=== PATIENT | female | born 1975 | race Hispanic/Latino ===

== ENCOUNTER → 2019-04-25 | Outpatient (CLI) | payer OTHER | END | disposition home or self-care (01) | LOC: RAH 14:28 | PROVIDERS: ATTEND Family Medicine | DX: Z12.31 Encounter for screening mammogram for malignant neoplasm of breast (principal) | CPT/HCPCS: 77067 ==

== ENCOUNTER → 2020-05-11 | Outpatient (CLI) | payer OTHER | END | disposition home or self-care (01) | LOC: RAH 13:13 | PROVIDERS: ATTEND Urology | DX: N20.0 Calculus of kidney (principal); N32.89 Other specified disorders of bladder | CPT/HCPCS: 76770 ==

== ENCOUNTER 2020-05-31 20:52 | Observation (INO) | payer OTHER ==
[~2020-05-31] VITALS: Ht 152.4 cm; Wt 88.9 kg
[2020-05-31 21:14] LABS: APPEARANCE,URINE Turbid (CLEAR); BILIRUBIN,URINE Negative (NEGATIVE); COLOR,URINE Yellow (YELLOW); GLUCOSE, URINE (UA) Negative (NEGATIVE); KETONES,URINE Trace mg/dL (NEGATIVE); LEUKOCYTE ESTERASE ,URINE Negative (NEGATIVE); NITRATE,URINE Negative (NEGATIVE); OCCULT BLOOD,URINE Negative (NEGATIVE); PH,URINE 5.5 (5.0-8.0); PROTEIN,URINE Negative (NEGATIVE)
[2020-05-31 21:16] LABS: HCG,QUAL RESULT NEGATIVE (NEGATIVE)
[2020-05-31 21:27] LABS: BASOPHILS % (AUTO) 0.6 % (0.0-5.0); EOSINOPHILS % (AUTO) 2.6 % (0.0-8.0); HEMATOCRIT 36.5 % (36-48); LYMPHOCYTES % (AUTO) 26.4 % (21.0-51.0); MEAN CORPUSCULAR HEMOGLOBIN 27.8 pg (27.0-33.0); MEAN CORPUSCULAR HGB CONC 32.6 g/dL (32.0-36.0); MEAN CORPUSCULAR VOLUME 85.3 fL (79-99); MONOCYTES % (AUTO) 6.3 % (3.0-13.0); NEUTROPHILS % (AUTO) 63.5 % (40.0-77.0); PLATELET COUNT (AUTO) 274 K/uL (130-400); RED BLOOD CELL COUNT(AUTO) 4.28 MIL/uL (4.00-5.50); RED CELL DISTRIBUTION WIDTH 14.3 % (11.0-15.5)
[2020-05-31] MEDS ORDERED: ONDANSETRON HCL 4 MG/2 ML VIAL ONE (21:36)
[2020-05-31] MEDS ORDERED: KETOROLAC TROMETHAMINE 30MG/ML ONE (21:36)
[2020-05-31 21:38] LABS: CREATININE 1.2 mg/dL (0.5-1.5); POTASSIUM 3.6 mmol/L (3.5-5.1)
[2020-05-31 21:40] LABS: BACTERIA,URINE Moderate /HPF (None Seen); MUCUS,URINE Few LPF (None Seen); SQUAMOUS EPITHELIAL CELL,UR Few /HPF (0-2); URIC ACID CRYSTALS,URINE Many /LPF (None Seen)
[2020-05-31 21:42] LABS: ALBUMIN 3.1 g/dL (3.5-5.0); BILIRUBIN,TOTAL 0.1 mg/dL (0.2-1.0); TOTAL PROTEIN, SERUM 6.9 g/dL (6.0-8.3)
[2020-06-01] VITALS (24 sets, daily range): BP systolic 119–163; BP diastolic 76–96
[2020-06-01] MEDS ORDERED: CEFTRIAXONE SODIUM 1 GM ONE ×2 (01:46→17:07)
[2020-06-01] MEDS: DEXTROSE 5 %-0.45 % NACL 1,000 ML IV SCH ×2 (02:45→21:26)
[2020-06-01] MEDS ORDERED: MORPHINE SULFATE 2 MG/ML 1ML SYG IVP PRN (02:45)
[2020-06-01] MEDS ORDERED: MORPHINE SULFATE 4 MG/1ML SYG ONE ×3 (04:23→13:16)
[2020-06-01] MEDS ORDERED: DEXTROSE 5 %-0.45 % NACL 1,000 ML IV ONE (04:23)
[2020-06-01 05:05] LABS: BASOPHILS % (AUTO) 0.5 % (0.0-5.0); EOSINOPHILS % (AUTO) 3.2 % (0.0-8.0); HEMATOCRIT 35.3 % (36-48); LYMPHOCYTES % (AUTO) 29.7 % (21.0-51.0); MEAN CORPUSCULAR HEMOGLOBIN 26.9 pg (27.0-33.0); MEAN CORPUSCULAR HGB CONC 31.7 g/dL (32.0-36.0); MEAN CORPUSCULAR VOLUME 84.7 fL (79-99); MONOCYTES % (AUTO) 6.5 % (3.0-13.0); NEUTROPHILS % (AUTO) 59.6 % (40.0-77.0); PLATELET COUNT (AUTO) 266 K/uL (130-400); RED BLOOD CELL COUNT(AUTO) 4.17 MIL/uL (4.00-5.50); WHITE BLOOD COUNT (AUTO) 12.3 K/uL (4.8-10.8)
[2020-06-01 05:19] LABS: CREATININE 1.2 mg/dL (0.5-1.5); POTASSIUM 3.7 mmol/L (3.5-5.1)
[2020-06-01 05:24] LABS: ALBUMIN 2.9 g/dL (3.5-5.0); BILIRUBIN,TOTAL 0.1 mg/dL (0.2-1.0); TOTAL PROTEIN, SERUM 6.6 g/dL (6.0-8.3)
[2020-06-01] MEDS ORDERED: ONDANSETRON HCL 4 MG/2 ML VIAL ONE (13:15)
[2020-06-01] MEDS ORDERED: IOHEXOL-350 50ML VIAL IV ONE (16:56)
[2020-06-01] MEDS ORDERED: PROPOFOL 10 MG/ML 20ML VIAL IV ONE (17:12)
[2020-06-01] MEDS ORDERED: SUCCINYLCHOLINE 200MG/10ML SYR ONE (17:12)
[2020-06-01] MEDS ORDERED: ROCURONIUM 10MG/1ML SYR 10 MG/ML ML ONE (17:12)
[2020-06-01] MEDS ORDERED: LIDOCAINE PF 2% 5ML ABBOJECT ONE (17:12)
[2020-06-01] MEDS ORDERED: FENTANYL CITRATE PF 50 MCG/1 ML 2ML VIAL ONE (17:13)
[2020-06-01] MEDS ORDERED: ALBUTEROL INHALER 90MCG/INH IH ONE (17:43)
[2020-06-01] MEDS ORDERED: NEOSTIGMINE 5MG/5ML SYR IV ONE (17:44)
[2020-06-01] MEDS ORDERED: GLYCOPYRROLATE 1 MG/5 ML SYRINGE ONE (17:44)
[2020-06-02 00:03] VITALS: BP 142/85
[2020-06-02 00:51] VITALS: BP 119/82
[2020-06-02] MEDS ORDERED: CEFTRIAXONE SODIUM 1 GM IVP SCH (01:00)
[2020-06-02 01:03] VITALS: BP 142/80
[2020-06-02] MEDS ORDERED: TRAZ-253 PO (03:00)
[2020-06-02] MEDS ORDERED: SOLI5TAB6 PO (03:00)
[2020-06-02] MEDS ORDERED: CETI1TAB PO (03:00)
[2020-06-02] MEDS ORDERED: DILT30TA3 PO (03:00)
[2020-06-02] MEDS ORDERED: CITA-106 PO (03:00)
[2020-06-02] MEDS ORDERED: ESTR0.5T PO (03:00)
[2020-06-02] MEDS ORDERED: MONT10TA26 PO (03:00)
[2020-06-02] MEDS ORDERED: TAMSULOSIN PO (03:00)
[2020-06-02 04:34] VITALS: BP 142/83
[2020-06-02 08:00] VITALS: BP 143/75
--- NOTE | 2020-06-02 08:00 | NUR ---
ASSESSMENT PT IS AAOX3 DENIES CP DENIES SOB DENIES NV NO COMPLAINTS RESTING IN BED. STATES SHE DENIES ALL PAIN WHATSOEVER TO SUPRAPUBIC AREA, AREA IS SOFT AND NON TENDER. STATES SHE IS ABLE TO URINATE WITHOUT HESITANCY AND STATES THAT SHE EMPTIES HER BLADDER ADEQUATELY. CALL LIGHT WITHIN REACH. PLAN FOR DC HOME TODAY.
--- NOTE | 2020-06-02 09:27 | NUR ---
DISCHARGE PT VERBALIZES DC INSTRUCTIONS UNDERSTANDING AGREES TO TAKE MEDS ORDERED AGREES TO FOLLOW UP WITH DR BACON AND DR PACHECO. ALL QUESTIONS ANSWERED, PIV REMOVED CATH TIP INTACT. AWAITING RIDE.
[2020-06-21] MEDS ORDERED: CITA10TA7 PO (11:29)
[2020-06-21] MEDS ORDERED: GAMMAGARD SQ (11:32)
[2020-06-21] MEDS ORDERED: RIZA10TA41 PO (11:32)
[2020-06-21] MEDS ORDERED: DIPH50 PO (11:32)
[2020-06-21] MEDS ORDERED: EREN70AU2 SQ (11:35)
[2020-06-21] MEDS ORDERED: ALBU18HF7 IH (11:35)
[2020-06-21] MEDS ORDERED: PROM25TA7 PO (11:38)
[2020-06-21] MEDS ORDERED: HYDR-4064 PO (11:38)
[2020-06-21] MEDS ORDERED: BUDE8.43 NS (11:38)
[2020-06-21] MEDS ORDERED: folic acid PO (11:40)
[2020-06-21] MEDS ORDERED: FERR-82 PO (11:40)
[2020-06-21] MEDS ORDERED: CYAN500T63 PO (11:40)
[2020-06-21] MEDS ORDERED: ALBU0.63 IH (11:41)
[2020-07-13] MEDS ORDERED: OMEP40CA13 PO (12:39)
[2020-07-13] MEDS ORDERED: DILT30TA3 PO (12:39)
[2020-07-13] MEDS ORDERED: SOLI5 PO (12:39)
[2020-07-13] MEDS ORDERED: FLUT1AER IH (12:39)
== END 2020-06-02 11:00 | disposition home or self-care (01) ==
LOC: EDH 20:52 → EDHIP 06-01 00:39 → 4CH 06-01 19:42
PROVIDERS: ADMIT Internal Medicine; ATTEND Internal Medicine
DX: N13.2 Hydronephrosis with renal and ureteral calculous obstruction (principal); Z20.828 Contact with and (suspected) exposure to other viral communicable diseases; N32.81 Overactive bladder; I10 Essential (primary) hypertension; G43.909 Migraine, unspecified, not intractable, without status migrainosus; E66.9 Obesity, unspecified; F32.9 Major depressive disorder, single episode, unspecified; Z87.442 Personal history of urinary calculi; Z90.710 Acquired absence of both cervix and uterus; Z88.2 Allergy status to sulfonamides; Z88.8 Allergy status to other drugs, medicaments and biological substances; Z79.899 Other long term (current) drug therapy
CPT/HCPCS: 36415 ×2; 52005; 74176; 74420; 76770; 80053 ×2; 81001; 81025; 85025 ×2; 87088; 87426; 96374; 99285; A4358; A4930; C1758; C1769; C2617; G0378 ×25; J0330; J0696 ×2; J1885; J2001; J2270 ×3; J2405 ×2; J2704; J2710; J3010; J3490; J7030; J7042; J7120; Q9967

== ENCOUNTER 2020-06-22 07:32 | Day surgery (SDC) | payer OTHER ==
[2020-06-20 19:01] LABS: BASOPHILS % (AUTO) 0.5 % (0.0-5.0); EOSINOPHILS % (AUTO) 1.7 % (0.0-8.0); HEMATOCRIT 36.7 % (36-48); LYMPHOCYTES % (AUTO) 27.7 % (21.0-51.0); MEAN CORPUSCULAR HEMOGLOBIN 27.5 pg (27.0-33.0); MEAN CORPUSCULAR HGB CONC 31.6 g/dL (32.0-36.0); MONOCYTES % (AUTO) 5.9 % (3.0-13.0); NEUTROPHILS % (AUTO) 63.6 % (40.0-77.0); PLATELET COUNT (AUTO) 373 K/uL (130-400); RED BLOOD CELL COUNT(AUTO) 4.22 MIL/uL (4.00-5.50); RED CELL DISTRIBUTION WIDTH 14.3 % (11.0-15.5)
[2020-06-21] MEDS: CEFTRIAXONE SODIUM 1 GM IVP SCH (07:30)
--- NOTE | 2020-06-21 09:57 | NUR ---
WBC FAXED AND REPORTED ABNORMAL WBC TO DR. ERIN SMALLWOOD ASST. SHE WILL INFORM DR. PACHECO.
--- NOTE | 2020-06-21 14:00 | NUR ---
PER SELIN LONGORIA NURSE--MD AWARE OF WBC 15. NO NEW ORDERS. WILL PROCEED
[~2020-06-22] VITALS: Ht 153.7 cm; Wt 91.3 kg
[2020-06-22] VITALS (17 sets, daily range): BP systolic 115–131; BP diastolic 64–78
[~2020-06-22 07:32] MED LIST: ALBU0.63 IH; ALBU18HF7 IH; BUDE8.43 NS; CETI1TAB PO; CITA10TA7 PO; CYAN500T63 PO; DILT30TA3 PO; DIPH50 PO; EREN70AU2 SQ; ESTR0.5T PO; FERR-82 PO; GAMMAGARD SQ; HYDR-4064 PO; LACTATED RINGERS 1000ML 1,000 ML IV ONE; MONT10TA26 PO; PROM25TA7 PO; RIZA10TA41 PO; TAMSULOSIN PO; TRAZ-253 PO; folic acid PO
--- NOTE | 2020-06-22 07:35 | NUR ---
preop pt arrived ambulatory in no distress for rt litho/cysto with poss stent exchange. pt oriented to call light and room. will continue to monitor pt
[2020-06-22] MEDS ORDERED: SUCCINYLCHOLINE 200MG/10ML SYR ONE (09:30)
[2020-06-22] MEDS ORDERED: PROPOFOL 10 MG/ML 20ML VIAL IV ONE (09:30)
[2020-06-22] MEDS ORDERED: NEOSTIGMINE 5MG/5ML SYR IV ONE (09:30)
[2020-06-22] MEDS ORDERED: DEXAMETHASONE SOD PHOSPHATE 10MG/ML 1ML VIAL ONE (09:30)
[2020-06-22] MEDS ORDERED: ROCURONIUM 10MG/1ML SYR 10 MG/ML ML ONE (09:30)
[2020-06-22] MEDS ORDERED: ONDANSETRON HCL 4 MG/2 ML VIAL ONE (09:30)
[2020-06-22] MEDS ORDERED: LIDOCAINE PF 2% 5ML ABBOJECT ONE (09:30)
[2020-06-22] MEDS ORDERED: GLYCOPYRROLATE 1 MG/5 ML SYRINGE ONE (09:30)
[2020-06-22] MEDS ORDERED: MIDAZOLAM HCL 1 MG/ML 2ML VIAL ONE (09:30)
[2020-06-22] MEDS ORDERED: FENTANYL CITRATE PF 50 MCG/1 ML 2ML VIAL ONE (09:31)
[2020-06-22] MEDS: CEFTRIAXONE SODIUM 1 GM IVP SCH (10:15)
[2020-06-22] MEDS ORDERED: MEPERIDINE-PF 25 MG/ML SYG ONE (11:39)
[2020-06-22] MEDS ORDERED: KETOROLAC TROMETHAMINE 30MG/ML ONE (11:39)
[2020-06-22] MEDS ORDERED: PHENAZOPYRIDINE HCL 200 MG TABLET ONE (13:10)
== END 2020-06-22 13:25 | disposition home or self-care (01) ==
LOC: DAH 07:32
PROVIDERS: ATTEND Urology
DX: N20.0 Calculus of kidney (principal); G47.30 Sleep apnea, unspecified; I25.10 Atherosclerotic heart disease of native coronary artery without angina pectoris; K21.9 Gastro-esophageal reflux disease without esophagitis; G43.909 Migraine, unspecified, not intractable, without status migrainosus; F41.9 Anxiety disorder, unspecified; Z79.899 Other long term (current) drug therapy; Z20.828 Contact with and (suspected) exposure to other viral communicable diseases
CPT/HCPCS: 36415; 50590; 52310; 85025; 87426; A4215; A4221; A4222; A4223; A4358; A4510; A4663; A6260; C9803; J0330; J0696; J1100; J1885; J2001; J2175; J2250; J2405; J2704; J2710; J3010; J3490; J7030; J7120 ×2; U0003

== ENCOUNTER 2020-07-05 15:16 | Emergency (ER) | payer OTHER ==
[~2020-07-05 15:16] MED LIST changes: -LACTATED RINGERS 1000ML 1,000 ML IV ONE
[2020-07-05] MEDS ORDERED: ONDANSETRON HCL 4 MG/2 ML VIAL ONE (15:36)
[2020-07-05] MEDS ORDERED: SODIUM CHLORIDE 0.9% 1000ML 1,000 ML IV ONE (15:36)
[2020-07-05] MEDS ORDERED: KETOROLAC TROMETHAMINE 30MG/ML ONE (15:36)
[2020-07-05 16:27] LABS: BASOPHILS % (AUTO) 0.6 % (0.0-5.0); EOSINOPHILS % (AUTO) 1.2 % (0.0-8.0); HEMATOCRIT 39.9 % (36-48); LYMPHOCYTES % (AUTO) 27.3 % (21.0-51.0); MEAN CORPUSCULAR HEMOGLOBIN 27.7 pg (27.0-33.0); MEAN CORPUSCULAR HGB CONC 32.8 g/dL (32.0-36.0); MEAN CORPUSCULAR VOLUME 84.4 fL (79-99); MONOCYTES % (AUTO) 5.1 % (3.0-13.0); NEUTROPHILS % (AUTO) 64.9 % (40.0-77.0); PLATELET COUNT (AUTO) 338 K/uL (130-400); RED BLOOD CELL COUNT(AUTO) 4.73 MIL/uL (4.00-5.50); RED CELL DISTRIBUTION WIDTH 14.2 % (11.0-15.5); WHITE BLOOD COUNT (AUTO) 19.3 K/uL (4.8-10.8)
[2020-07-05 16:35] LABS: CREATININE 1.1 mg/dL (0.5-1.5); POTASSIUM 3.9 mmol/L (3.5-5.1)
[2020-07-05 16:39] LABS: ALBUMIN 3.5 g/dL (3.5-5.0); BILIRUBIN,DIRECT 0.1 mg/dL (0.0-0.3); BILIRUBIN,TOTAL 0.2 mg/dL (0.2-1.0); TOTAL PROTEIN, SERUM 8.1 g/dL (6.0-8.3)
[2020-07-05 16:39] LABS: APPEARANCE,URINE Clear (CLEAR); BILIRUBIN,URINE Negative (NEGATIVE); COLOR,URINE Yellow (YELLOW); GLUCOSE, URINE (UA) Negative (NEGATIVE); KETONES,URINE Trace mg/dL (NEGATIVE); LEUKOCYTE ESTERASE ,URINE Negative (NEGATIVE); NITRATE,URINE Negative (NEGATIVE); OCCULT BLOOD,URINE Negative (NEGATIVE); PROTEIN,URINE Trace mg/dL (NEGATIVE)
[2020-07-05 16:57] LABS: BACTERIA,URINE Few /HPF (None Seen); SQUAMOUS EPITHELIAL CELL,UR 0-2 /HPF (0-2)
[2020-07-05] MEDS ORDERED: MORPHINE SULFATE 4 MG/1ML SYG ONE (17:44)
== END 2020-07-05 18:36 | disposition home or self-care (01) ==
LOC: EDH 15:16
DX: R10.9 Unspecified abdominal pain (principal); F41.9 Anxiety disorder, unspecified; F32.9 Major depressive disorder, single episode, unspecified; G43.909 Migraine, unspecified, not intractable, without status migrainosus; Z90.49 Acquired absence of other specified parts of digestive tract; Z90.710 Acquired absence of both cervix and uterus; Z88.2 Allergy status to sulfonamides; Z88.1 Allergy status to other antibiotic agents
CPT/HCPCS: 36415; 74176; 80048; 80076; 81001; 82550; 83690; 84484; 85025; 93005; 96361; 96374; 96375; 99285; J1885; J2270; J2405; J7030

== ENCOUNTER 2021-02-17 05:04 | Emergency (ER) | payer OTHER ==
[~2021-02-17 05:04] MED LIST changes: -CETI1TAB PO; -CYAN500T63 PO; -DIPH50 PO; -FERR-82 PO; +FLUT1AER IH; -MONT10TA26 PO; +MONT10TA32 PO; +OMEP40CA13 PO; +SOLI5 PO; -folic acid PO
[2021-02-17 05:38] LABS: BASOPHILS % (AUTO) 0.5 % (0.0-5.0); EOSINOPHILS % (AUTO) 1.6 % (0.0-8.0); HEMATOCRIT 37.8 % (36-48); LYMPHOCYTES % (AUTO) 32.7 % (21.0-51.0); MEAN CORPUSCULAR HEMOGLOBIN 26.3 pg (27.0-33.0); MEAN CORPUSCULAR HGB CONC 31.7 g/dL (32.0-36.0); MEAN CORPUSCULAR VOLUME 82.7 fL (79-99); MONOCYTES % (AUTO) 5.5 % (3.0-13.0); NEUTROPHILS % (AUTO) 59.1 % (40.0-77.0); PLATELET COUNT (AUTO) 339 K/uL (130-400); RED BLOOD CELL COUNT(AUTO) 4.57 MIL/uL (4.00-5.50); RED CELL DISTRIBUTION WIDTH 15.1 % (11.0-15.5); WHITE BLOOD COUNT (AUTO) 12.7 K/uL (4.8-10.8)
[2021-02-17 05:46] LABS: APPEARANCE,URINE Clear (CLEAR); BILIRUBIN,URINE Negative (NEGATIVE); COLOR,URINE Yellow (YELLOW); GLUCOSE, URINE (UA) Negative (NEGATIVE); KETONES,URINE Trace mg/dL (NEGATIVE); LEUKOCYTE ESTERASE ,URINE Trace (NEGATIVE); NITRATE,URINE Negative (NEGATIVE); OCCULT BLOOD,URINE Negative (NEGATIVE); PH,URINE 5.5 (5.0-8.0); PROTEIN,URINE Trace mg/dL (NEGATIVE); UROBILINOGEN,URINE 0.2 mg/dL (0.2-1.0)
[2021-02-17] MEDS ORDERED: KETOROLAC TROMETHAMINE 30MG/ML ONE (05:52)
[2021-02-17 05:53] LABS: BACTERIA,URINE None Seen /HPF (None Seen); MUCUS,URINE Many LPF (None Seen); RBC,URINE None Seen /HPF (0-1); SQUAMOUS EPITHELIAL CELL,UR Many /HPF (0-2); WBC,URINE 0-1 /HPF (0-1)
[2021-02-17 06:00] LABS: ALBUMIN 3.2 g/dL (3.5-5.0); BILIRUBIN,TOTAL 0.2 mg/dL (0.2-1.0); CREATININE 0.9 mg/dL (0.5-1.5); POTASSIUM 3.8 mmol/L (3.5-5.1); TOTAL PROTEIN, SERUM 7.8 g/dL (6.0-8.3)
[2021-02-17] MEDS ORDERED: TAMSULOSIN HCL 0.4 MG CAP.ER.24H ONE (06:00)
[2021-02-17] MEDS ORDERED: MORPHINE SULFATE 4 MG/1ML SYG ONE ×2 (06:02→07:32)
[2021-02-17] MEDS ORDERED: ONDANSETRON HCL 4 MG/2 ML VIAL ONE (06:02)
[2021-02-17] MEDS ORDERED: CEFTRIAXONE SODIUM 1 GM ONE (07:18)
[2021-02-17] MEDS ORDERED: SODIUM CHLORIDE 0.9% 50 ML IV ONE (07:18)
[2021-02-20] MEDS ORDERED: GABA300S PO (16:22)
[2021-02-20] MEDS ORDERED: FERR325T29 PO (16:24)
[2021-02-20] MEDS ORDERED: FOLI0.8T3 PO (16:25)
[2021-02-20] MEDS ORDERED: CYAN500T9 PO (16:26)
[2021-02-20] MEDS ORDERED: RIME75TA PO (16:27)
== END 2021-02-17 08:17 | disposition home or self-care (01) ==
LOC: EDH 05:04
DX: N13.2 Hydronephrosis with renal and ureteral calculous obstruction (principal); N39.0 Urinary tract infection, site not specified; F41.9 Anxiety disorder, unspecified; F32.9 Major depressive disorder, single episode, unspecified; G43.909 Migraine, unspecified, not intractable, without status migrainosus; Z90.710 Acquired absence of both cervix and uterus; Z88.2 Allergy status to sulfonamides; Z88.8 Allergy status to other drugs, medicaments and biological substances; Z98.890 Other specified postprocedural states
CPT/HCPCS: 36415; 74176; 80053; 81001; 81025; 85025; 96361; 96374; 96375; 96376; 99284; J0696; J1885; J2270 ×2; J2405

== ENCOUNTER → 2021-03-06 | Outpatient (CLI) | payer OTHER ==
[~2021-03-06] MED LIST changes: +CYAN500T9 PO; +FERR325T29 PO; +FOLI0.8T3 PO; +GABA300S PO; -GAMMAGARD SQ; -HYDR-4064 PO; +RIME75TA PO; -RIZA10TA41 PO
== END | disposition home or self-care (01) ==
LOC: RAH 09:57
PROVIDERS: ATTEND Urology
DX: N20.0 Calculus of kidney (principal)
CPT/HCPCS: 74018

== ENCOUNTER 2021-03-15 06:55 | Day surgery (SDC) | payer OTHER ==
[2021-03-14 09:55] VITALS: BP 120/73
[2021-03-15] VITALS (16 sets, daily range): BP systolic 106–126; BP diastolic 50–77
[~2021-03-15] VITALS: Ht 152.4 cm; Wt 84.8 kg
[~2021-03-15 06:55] MED LIST changes: -CITA10TA7 PO; +CUVITRU PO; +MTH/1CAP7 PO; +TRAZ-187 PO; -TRAZ-253 PO; +[UNRECOGNIZED DRUG - OTHER] PO
[2021-03-15] MEDS ORDERED: LACTATED RINGERS 1000ML 1,000 ML IV ONE (07:42)
[2021-03-15] MEDS: LEVOFLOXACIN 500 MG/D5W 100 ML 100 ML IV SCH ×2 (07:52→08:10)
[2021-03-15] MEDS ORDERED: LIDOCAINE PF 100MG/5ML (2%) SYRINGE 5ML ONE (07:57)
[2021-03-15] MEDS ORDERED: FENTANYL CITRATE PF 50 MCG/1 ML 2ML VIAL ONE (07:57)
[2021-03-15] MEDS ORDERED: PROPOFOL 10 MG/ML 20ML VIAL IV ONE (07:57)
[2021-03-15] MEDS ORDERED: SUCCINYLCHOLINE 200MG/10ML SYR ONE (07:57)
[2021-03-15] MEDS ORDERED: ONDANSETRON HCL 4 MG/2 ML VIAL ONE (09:14)
[2021-03-15] MEDS ORDERED: KETOROLAC TROMETHAMINE 30MG/ML ONE (09:14)
== END 2021-03-15 10:52 | disposition home or self-care (01) ==
LOC: DAH 06:55
PROVIDERS: ATTEND Urology
DX: Z46.6 Encounter for fitting and adjustment of urinary device (principal); N20.0 Calculus of kidney; Z20.822 Contact with and (suspected) exposure to COVID-19; K21.9 Gastro-esophageal reflux disease without esophagitis; E66.9 Obesity, unspecified; J45.909 Unspecified asthma, uncomplicated; Z98.890 Other specified postprocedural states; Z90.710 Acquired absence of both cervix and uterus; Z88.2 Allergy status to sulfonamides; Z87.820 Personal history of traumatic brain injury; Z79.899 Other long term (current) drug therapy
CPT/HCPCS: 50590; 52310; A4215; A4221; A4222; A4223; A4358; A4510; A4600; A4663; C9803; J0330; J1956; J2001; J2405; J2704; J3010; J7120 ×2; U0003; J1885

== ENCOUNTER 2022-12-16 10:42 | Emergency (ER) | payer OTHER ==
[~2022-12-16] VITALS: Ht 152.4 cm; Wt 90.7 kg
[~2022-12-16 10:42] MED LIST changes: -ALBU0.63 IH; -BUDE8.43 NS; +CETI1TAB PO; +CITA-108 PO; +DICY20TA3 PO; -DILT30TA3 PO; -EREN70AU2 SQ; +HYDR-3830 PO; +LIFI1DRO OP; +METO-296 PO; +MONT-39 PO; -MONT10TA32 PO; -MTH/1CAP7 PO; +OMAD150T PO; -OMEP40CA13 PO; +PANT20TA18 PO; -PROM25TA7 PO; +SOLI10TA7 PO; -SOLI5 PO; +SUCR1TAB2 PO; -[UNRECOGNIZED DRUG - OTHER] PO
[2022-12-16 11:06] LABS: APPEARANCE,URINE CLEAR (CLEAR); BILIRUBIN,URINE NEGATIVE (NEGATIVE); COLOR,URINE YELLOW (YELLOW); GLUCOSE, URINE (UA) NEGATIVE (NEGATIVE); KETONES,URINE 5 mg/dL (NEGATIVE); LEUKOCYTE ESTERASE ,URINE NEGATIVE Leu/uL (NEGATIVE); NITRATE,URINE NEGATIVE (NEGATIVE); OCCULT BLOOD,URINE LARGE (NEGATIVE); PH,URINE 5.5 (5.0-8.0); PROTEIN,URINE 50 mg/dL (NEGATIVE)
[2022-12-16 11:08] LABS: BASOPHILS % (AUTO) 0.4 % (0.0-5.0); EOSINOPHILS % (AUTO) 0.9 % (0.0-8.0); HEMATOCRIT 38.9 % (36-48); LYMPHOCYTES % (AUTO) 24.5 % (21.0-51.0); MEAN CORPUSCULAR HEMOGLOBIN 26.9 pg (27.0-33.0); MEAN CORPUSCULAR HGB CONC 32.1 g/dL (32.0-36.0); MEAN CORPUSCULAR VOLUME 83.8 fL (79-99); MONOCYTES % (AUTO) 4.9 % (3.0-13.0); NEUTROPHILS % (AUTO) 67.8 % (40.0-77.0); PLATELET COUNT (AUTO) 339 K/uL (130-400); RED BLOOD CELL COUNT(AUTO) 4.64 MIL/uL (4.00-5.50); RED CELL DISTRIBUTION WIDTH 14.7 % (11.0-15.5); WHITE BLOOD COUNT (AUTO) 15.8 K/uL (4.8-10.8)
[2022-12-16 11:13] LABS: MUCUS,URINE FEW LPF (None Seen); RBC,URINE TNTC /HPF (0-1); SQUAMOUS EPITHELIAL CELL,UR RARE /HPF (0-2)
[2022-12-16 11:13] LABS: POTASSIUM 3.8 mmol/L (3.5-5.1)
[2022-12-16 11:18] LABS: ALBUMIN 3.6 g/dL (3.5-5.0); TOTAL PROTEIN, SERUM 7.6 g/dL (6.0-8.3)
[2022-12-16 13:44] VITALS: BP 136/81
[2022-12-16] MEDS ORDERED: MORPHINE 4 MG SYG IVP ONE ×2 (14:00→15:30)
[2022-12-16] MEDS ORDERED: ONDANSETRON 4MG INJ IVP ONE (14:00)
[2022-12-16] MEDS ORDERED: 0.9%NACL 1000ML 1,000 ML IV ONE (14:00)
[2022-12-16] MEDS ORDERED: ACET-2079 PO (15:03)
[2022-12-16] MEDS ORDERED: TAMS-1 PO (15:03)
[2022-12-16] MEDS ORDERED: KETOROLAC 15MG/ML VIAL (15MG/ML) IV ONE (15:30)
== END 2022-12-16 15:46 | disposition home or self-care (01) ==
LOC: EDH 10:42
DX: N20.1 Calculus of ureter (principal); F32.A Depression, unspecified; F41.9 Anxiety disorder, unspecified; E86.0 Dehydration; J45.909 Unspecified asthma, uncomplicated; Z88.1 Allergy status to other antibiotic agents; Z88.8 Allergy status to other drugs, medicaments and biological substances; Z88.6 Allergy status to analgesic agent; Z88.2 Allergy status to sulfonamides; Z79.899 Other long term (current) drug therapy; Z90.49 Acquired absence of other specified parts of digestive tract; Z87.442 Personal history of urinary calculi; Z90.710 Acquired absence of both cervix and uterus; Z98.890 Other specified postprocedural states
CPT/HCPCS: 99285; 74176; 96374; 96375; 96361; 80053; 85025; 81001; 36415; 96376; J7030; J2405; J2270 ×2; J1885

== ENCOUNTER → 2023-04-01 | Outpatient (CLI) | payer OTHER ==
[~2023-04-01] MED LIST changes: +ACET-2079 PO; -GABA300S PO; +GABA300S3 PO; +TAMS-1 PO
== END | disposition home or self-care (01) ==
LOC: RAH 11:13
PROVIDERS: ATTEND Urology
DX: N20.0 Calculus of kidney (principal); N13.30 Unspecified hydronephrosis; N20.1 Calculus of ureter
CPT/HCPCS: 76770

== ENCOUNTER 2023-08-21 13:32 | Emergency (ER) | payer OTHER ==
[~2023-08-21] VITALS: Ht 152.4 cm; Wt 90.3 kg
[~2023-08-21 13:32] MED LIST changes: -ESTR0.5T PO; +ESTR0.5T2 PO
[2023-08-21] MEDS ORDERED: ACETAMINOPHEN 500 MG TABLET PO ONE (14:30)
[2023-08-21 15:05] LABS: BASOPHILS # (AUTO) 0.05 K/uL (0.00-0.20); BASOPHILS % (AUTO) 0.4 % (0.0-5.0); EOSINOPHILS # (AUTO) 0.19 K/uL (0.00-0.70); EOSINOPHILS % (AUTO) 1.4 % (0.0-8.0); HEMATOCRIT 35.9 % (36-48); IMMATURE GRANULOCYTE ABSOLUTE 0.08 K/uL (0-1); LYMPHOCYTES % (AUTO) 21.7 % (21.0-51.0); MEAN CORPUSCULAR HEMOGLOBIN 26.6 pg (27.0-33.0); MEAN CORPUSCULAR HGB CONC 32.3 g/dL (32.0-36.0); MEAN CORPUSCULAR VOLUME 82.3 fL (79-99); MONOCYTES # (AUTO) 0.9 K/uL (0.1-1.0); MONOCYTES % (AUTO) 6.3 % (3.0-13.0); NEUTROPHILS # (AUTO) 9.8 K/uL (1.8-7.7); NEUTROPHILS % (AUTO) 69.6 % (40.0-77.0); PLATELET COUNT (AUTO) 328 K/uL (130-400); RED BLOOD CELL COUNT(AUTO) 4.36 MIL/uL (4.00-5.50); RED CELL DISTRIBUTION WIDTH 16.3 % (11.0-15.5)
[2023-08-21 15:14] LABS: CREATININE 0.8 mg/dL (0.5-1.5); POTASSIUM 3.7 mmol/L (3.5-5.1)
[2023-08-21 15:21] LABS: ALBUMIN 2.9 g/dL (3.5-5.0); BILIRUBIN,TOTAL 0.2 mg/dL (0.2-1.0); TOTAL PROTEIN, SERUM 7.2 g/dL (6.0-8.3)
[2023-08-21 17:24] LABS: APPEARANCE,URINE CLEAR (CLEAR); BILIRUBIN,URINE NEGATIVE (NEGATIVE); GLUCOSE, URINE (UA) NEGATIVE (NEGATIVE); KETONES,URINE NEGATIVE (NEGATIVE); LEUKOCYTE ESTERASE ,URINE NEGATIVE Leu/uL (NEGATIVE); NITRATE,URINE NEGATIVE (NEGATIVE); OCCULT BLOOD,URINE NEGATIVE (NEGATIVE); PH,URINE 5.5 (5.0-8.0); PROTEIN,URINE NEGATIVE (NEGATIVE); UROBILINOGEN,URINE 0.2 mg/dL (0.2-1.0)
[2023-08-21 17:26] LABS: ADD UA MICROSCOPIC NO; COLOR,URINE YELLOW (YELLOW)
[2023-08-21] MEDS ORDERED: ACET-2079 PO (18:03)
[2023-08-21] MEDS ORDERED: CYCL5TAB PO (18:04)
[2023-08-21] MEDS ORDERED: LIDO1ADH71 TP (18:04)
[2023-08-21 18:08] VITALS: BP 131/72; PULSE 80; RESP 16; O2SAT 100
== END 2023-08-21 18:15 | disposition home or self-care (01) ==
LOC: EDH 13:32
DX: S16.1XXA Strain of muscle, fascia and tendon at neck level, initial encounter (principal); S09.8XXA Other specified injuries of head, initial encounter; S70.01XA Contusion of right hip, initial encounter; M25.551 Pain in right hip; F41.9 Anxiety disorder, unspecified; F32.A Depression, unspecified; J45.909 Unspecified asthma, uncomplicated; Z79.899 Other long term (current) drug therapy; Z90.49 Acquired absence of other specified parts of digestive tract; Z90.710 Acquired absence of both cervix and uterus; Z98.890 Other specified postprocedural states; Z87.442 Personal history of urinary calculi; Z88.1 Allergy status to other antibiotic agents; Z88.2 Allergy status to sulfonamides; Z88.6 Allergy status to analgesic agent; W18.39XA Other fall on same level, initial encounter; Y93.89 Activity, other specified; Y92.89 Other specified places as the place of occurrence of the external cause; Y99.8 Other external cause status
CPT/HCPCS: 36415; 70450; 72125; 73502; 80053; 81003; 84484; 85025; 93005

== ENCOUNTER 2023-09-04 00:36 | Emergency (ER) | payer OTHER ==
[~2023-09-04] VITALS: Ht 152.4 cm; Wt 90.3 kg
[~2023-09-04 00:36] MED LIST changes: +CYCL5TAB PO; +LIDO1ADH71 TP
[2023-09-04] MEDS ORDERED: 0.9%NACL 1000ML 1,000 ML IV ONE (01:00)
[2023-09-04] MEDS ORDERED: ONDANSETRON 4MG INJ IVP ONE (01:00)
[2023-09-04] MEDS ORDERED: MORPHINE 2 MG SYG IVP ONE (01:00)
[2023-09-04 01:05] LABS: APPEARANCE,URINE CLEAR (CLEAR); BILIRUBIN,URINE NEGATIVE (NEGATIVE); COLOR,URINE LIGHT-YELLOW (YELLOW); GLUCOSE, URINE (UA) NEGATIVE (NEGATIVE); KETONES,URINE NEGATIVE (NEGATIVE); LEUKOCYTE ESTERASE ,URINE 250 Leu/uL (NEGATIVE); NITRATE,URINE NEGATIVE (NEGATIVE); OCCULT BLOOD,URINE NEGATIVE (NEGATIVE); PH,URINE 5.5 (5.0-8.0); PROTEIN,URINE NEGATIVE (NEGATIVE); UROBILINOGEN,URINE 0.2 mg/dL (0.2-1.0)
[2023-09-04 01:07] LABS: ADD UA MICROSCOPIC YES; HCG,QUALITATIVE URINE NEGATIVE (NEGATIVE)
[2023-09-04 01:09] LABS: BASOPHILS # (AUTO) 0.04 K/uL (0.00-0.20); BASOPHILS % (AUTO) 0.3 % (0.0-5.0); EOSINOPHILS # (AUTO) 0.32 K/uL (0.00-0.70); EOSINOPHILS % (AUTO) 2.2 % (0.0-8.0); HEMATOCRIT 35.9 % (36-48); IMMATURE GRANULOCYTE ABSOLUTE 0.06 K/uL (0-1); LYMPHOCYTES # (AUTO) 2.7 K/uL (1.0-4.8); LYMPHOCYTES % (AUTO) 18.6 % (21.0-51.0); MEAN CORPUSCULAR HEMOGLOBIN 27.1 pg (27.0-33.0); MEAN CORPUSCULAR VOLUME 84.7 fL (79-99); MONOCYTES % (AUTO) 6.8 % (3.0-13.0); NEUTROPHILS # (AUTO) 10.4 K/uL (1.8-7.7); NEUTROPHILS % (AUTO) 71.7 % (40.0-77.0); PLATELET COUNT (AUTO) 321 K/uL (130-400); RED BLOOD CELL COUNT(AUTO) 4.24 MIL/uL (4.00-5.50); RED CELL DISTRIBUTION WIDTH 15.9 % (11.0-15.5); WHITE BLOOD COUNT (AUTO) 14.5 K/uL (4.8-10.8)
[2023-09-04 01:09] LABS: BACTERIA,URINE RARE /HPF (None Seen); MUCUS,URINE FEW LPF (None Seen); SQUAMOUS EPITHELIAL CELL,UR RARE /HPF (0-2)
[2023-09-04 01:21] LABS: CREATININE 0.9 mg/dL (0.5-1.5); POTASSIUM 3.5 mmol/L (3.5-5.1)
[2023-09-04 01:25] LABS: ALBUMIN 2.9 g/dL (3.5-5.0); BILIRUBIN,TOTAL 0.2 mg/dL (0.2-1.0); TOTAL PROTEIN, SERUM 7.4 g/dL (6.0-8.3)
[2023-09-04] MEDS ORDERED: CEFU500T67 PO (01:53)
[2023-09-04] MEDS ORDERED: PHEN-847 PO (01:54)
[2023-09-04] MEDS ORDERED: CEFTRIAXONE 1G VIAL IVPB ONE (02:00)
[2023-09-04] MEDS ORDERED: DICYCLOMINE 20MG (10MG/ML) AMP IM STA (02:37)
[2023-09-04 02:49] LABS: TRIGLYCERIDES 123 mg/dL (30-200)
[2023-09-04] MEDS ORDERED: ACETAMINOPHEN 325 MG TAB PO ONE (03:30)
[2023-09-04] MEDS: HALOPERIDOL INJ 5 MG/ML VIAL IV SCH ×2 (03:42→03:49)
[2023-09-04 03:50] VITALS: BP 116/60; PULSE 78; RESP 18; O2SAT 98
== END 2023-09-04 03:52 | disposition home or self-care (01) ==
LOC: EDH 00:36
DX: N39.0 Urinary tract infection, site not specified (principal); E11.9 Type 2 diabetes mellitus without complications; F41.9 Anxiety disorder, unspecified; F32.A Depression, unspecified; Z79.51 Long term (current) use of inhaled steroids; Z79.899 Other long term (current) drug therapy; Z88.1 Allergy status to other antibiotic agents; Z88.2 Allergy status to sulfonamides; Z88.6 Allergy status to analgesic agent; Z90.49 Acquired absence of other specified parts of digestive tract
CPT/HCPCS: 99285; 74176; 96365; 96375; 96361; 84478; 80053; 83690; 85025; 87088; 83605; 81001; 81025; 36415; 96372; J2270; J7030; J1630; J0696; J2405; J0500

== ENCOUNTER 2025-07-16 17:10 | Emergency (ER) | payer OTHER ==
[~2025-07-16] VITALS: Ht 152.4 cm; Wt 83.5 kg
[~2025-07-16 17:10] MED LIST changes: +CEFU500T67 PO; +CYAN500T3 PO; -CYAN500T9 PO; -CYCL5TAB PO; +CYCL5TAB3 PO; -LIFI1DRO OP; +LIFI1DRO5 OP; +PHEN-847 PO; -TAMS-1 PO; +TAMS-55 PO
--- NOTE | 2025-07-16 17:12 | NUR ---
UA CUP PROVIDED
--- NOTE | 2025-07-16 17:54 | NUR ---
REPORT TO FARIDA CARNEY RN
[2025-07-16 18:02] LABS: ADD UA MICROSCOPIC YES; APPEARANCE,URINE HAZY (CLEAR); GLUCOSE, URINE (UA) NEGATIVE (NEGATIVE); LEUKOCYTE ESTERASE ,URINE NEGATIVE Leu/uL (NEGATIVE); NITRATE,URINE NEGATIVE (NEGATIVE); OCCULT BLOOD,URINE LARGE (NEGATIVE)
--- NOTE | 2025-07-16 18:03 | HMCIMG ---
EXAM: CT Abdomen and Pelvis Without IV contrast CLINICAL HISTORY: left flank pain, llq pain, r/o kidney stones TECHNIQUE: Axial computed tomography images of the abdomen and pelvis without intravenous contrast. CONTRAST: No IV contrast. COMPARISON: None provided. FINDINGS: LUNG BASES: The lung bases appear clear. No pleural effusions are seen. LIVER: Unremarkable. GALLBLADDER AND BILE DUCTS: Cholecystectomy. PANCREAS: Unremarkable. SPLEEN: Unremarkable. ADRENAL GLANDS: Unremarkable. KIDNEYS, URETERS, AND BLADDER: Subcentimeter nonobstructing bilateral renal collecting system stones, measuring up to 4 mm. No ureteral stones. No hydronephrosis. STOMACH AND BOWEL: No bowel obstruction or inflammation. Constipation. APPENDIX: Normal appendix. PERITONEUM: No free fluid. No free air. LYMPH NODES: No lymphadenopathy is evident. REPRODUCTIVE: Unremarkable as visualized. VASCULATURE: No evidence of abdominal aortic aneurysm. BONES: No aggressive appearing osseous lesion. No acute osseous pathology evident. MISCELLANEOUS: Subcutaneous fat stranding and subcutaneous air in the abdominal wall which is likely related to injections. IMPRESSION: Subcentimeter nonobstructing bilateral renal collecting system stones, measuring up to 4 mm. No ureteral stones. No hydronephrosis. No bowel obstruction or inflammation. Constipation. Normal appendix. Cholecystectomy. Subcutaneous fat stranding and subcutaneous air in the abdominal wall which is likely related to injections. /[place]
[2025-07-16 18:09] LABS: SQUAMOUS EPITHELIAL CELL,UR FEW /HPF (0-2)
[2025-07-16] MEDS: 0.9%NACL 1000ML 1,000 ML IV ONE (18:11)
[2025-07-16 18:12] LABS: IMMATURE GRANULOCYTE ABSOLUTE 0.06 K/uL (0-1); NUCLEATED RED BLOOD CELLS 0.0 % (0.0-0.19); PLATELET COUNT (AUTO) 315 K/uL (130-400); RED BLOOD CELL COUNT(AUTO) 4.25 MIL/uL (4.00-5.50); RED CELL DISTRIBUTION WIDTH 14.2 % (11.0-15.5); WHITE BLOOD COUNT (AUTO) 12.6 K/uL (4.8-10.8)
[2025-07-16 18:20] LABS: CREATININE 0.8 mg/dL (0.5-1.0); GLOMERULAR FILTR. RATE CALC 90.0 mL/min (>90); GLUCOSE,RANDOM 99.0 mg/dL (70-105); SODIUM SERUM 140.0 mmol/L (136-145); UREA NITROGEN, BLOOD 11.0 mg/dL (7-18)
[2025-07-16] MEDS ORDERED: LACT-441 PO (18:43)
--- NOTE | 2025-07-16 18:44 | ERN ---
ED Note History of Present Illness Stated Complaint: LEFT BACK, GROIN PAIN, UA PAIN Chief Complaint: Multiple Complaints Time Seen by MD: 17:14 Time Seen by Midlevel: 17:04 Dictation: The patient is a 50-year-old female with a history of a asthma, depression, hysterectomy, primary immune disorder, kidney stones who presents to the emergency department with left flank pain onset yesterday. Patient reports pain radiates to her left lower quadrant. Reports slight hematuria. Patient reports nausea but denies vomiting, denies diarrhea, denies any fevers. Allergies: Coded Allergies: Metronidazole HCl (Verified Allergy, Unknown, HIVES, 12/16/22) Sulfa (Sulfonamide Antibiotics) (Verified Allergy, Unknown, HIVES, 12/16/22) ibuprofen (Unverified Allergy, Unknown, 12/16/22) metronidazole (Verified Allergy, Unknown, HIVES, 12/16/22) Home Meds Active Scripts Phenazopyridine HCl (Pyridium) 200 Mg Tab, 200 MG PO TIDP PRN for PAIN, #15 TAB Prov:THEODORA SAVAGE MD 09/04/23 Cefuroxime Axetil (Cefuroxime) 500 Mg Tablet, 500 MG PO BID, #20 TAB Prov:THEODORA SAVAGE MD 09/04/23 Lidocaine (Lidocaine Pain Relief) 4 % Adh..patch, 1 EACH TP DAILY for 5 Days, #5 ADH.PATCH Prov:AMBER MOORE 08/21/23 Cyclobenzaprine HCl (Cyclobenzaprine HCl) 5 Mg Tablet, 5 MG PO DAILYDINNER for 5 Days, #5 TAB Prov:AMBER MOORE 08/21/23 Acetaminophen with Codeine (Acetaminophen-Cod #3 Tablet) 300 Mg-30 Mg Tablet, 1 TAB PO Q4H PRN for S16.1XXA for 5 Days, #7 TAB Prov:AMBER MOORE 08/21/23 Tamsulosin HCl (Flomax) 0.4 Mg Cap.er.24h, 0.4 MG PO DAILY, #15 CAPSULE. Prov:LARA KEY 12/16/22 Acetaminophen with Codeine (Acetaminophen-Cod #3 Tablet) 1 Each Tablet, 1 TAB PO Q4H PRN for PAIN, #15 TAB Prov:LARA KEY 12/16/22 Reported Medications Metoclopramide HCl (Reglan) 10 Mg Tablet, 10 MG PO BID, TAB 10/18/22 Pantoprazole Sodium (Pantoprazole Sodium) 20 Mg Tablet.dr, 20 MG PO DAILY, TAB 10/18/22 Sucralfate (Sucralfate) 1 Gm Tablet, 1 GM PO TID, TAB 10/18/22 Omadacycline Tosylate (Nuzyra) 150 Mg Tablet, 150 MG PO DAILY, TAB nuzyra 150 mg tabs/take 4tabs daily 10/18/22 Hydroxyzine HCl (Hydroxyzine HCl) 10 Mg Tablet, 10 MG PO HS, TAB 10/18/22 Cetirizine HCl/Pseudoephedrine (Zyrtec-D Tablet) 1 Each Tab.er.12h, 1 EACH PO DAILY, TAB 10/18/22 Lifitegrast (Xiidra) 1 Each Droperette, 1 EACH OP BID, DROP 10/18/22 Dicyclomine HCl (Dicyclomine HCl) 20 Mg Tablet, 20 MG PO QIDP, TAB 10/18/22 Trazodone HCl (Trazodone HCl) 100 Mg Tablet, 200 MG PO HS, TAB 10/18/22 Citalopram Hydrobromide (Citalopram HBr) 40 Mg Tablet, 40 MG PO DAILY, TAB 10/18/22 Solifenacin Succinate (Solifenacin Succinate) 10 Mg Tablet, 10 MG PO DAILY, TAB 10/18/22 [cuvitru] No Conflict Check, 17 G PO [id number] 03/14/21 Gabapentin (Gabapentin) 300 Mg/6 Ml Solution, 300 MG PO BID, ML 03/14/21 Rimegepant Sulfate (Nurtec Odt) 75 Mg Tab.rapdis, 75 MG PO AD PRN for MIGRAINE HEADACHE, TAB 02/20/21 Cyanocobalamin (Vitamin B-12) 500 Mcg Tab, 500 MCG PO AM, TAB 02/20/21 Folic Acid (Folic Acid) 0.8 Mg Tablet, 0.8 MG PO AM, TAB 02/20/21 Ferrous Sulfate (Ferosul) 325 Mg Tablet, 325 MG PO AM, TAB 02/20/21 Fluticasone/Vilanterol (Breo Ellipta 100-25 Mcg INH) 1 Each Aer.pow.ba, 1 EACH IH HS 07/13/20 Albuterol Sulfate (Ventolin Hfa) 18 Gm Hfa.aer.ad, 2 PUFF IH AD, INHALER 06/21/20 Estradiol (Estradiol) 0.5 Mg Tablet, 0.5 MG PO DAILY 06/02/20 Montelukast Sodium (Montelukast Sodium) 10 Mg Tablet, 10 MG PO DAILY 06/02/20 [Tamsulosin] 0.4 No Conflict Check, 0.4 MG PO DAILY 06/02/20 Past Medical History Past Medical History: Anxiety, Asthma, Depression, Diabetes-Type II, Kidney Stone, Other Additional Past Medical Hx: IMMUNE DISORDER, SCIATICA, INSOMNIA Surgical History: Hysterectomy, Cholecystectomy, Other Surgical History Other: SEPTOPLASTY, BLADDER, LITHOTRIPSY Family History: HTN Social History: Lives with family RN Note Reviewed/Agreed w/PFSH: Yes Review of System Dictation Constitutional: Negative for fever,chills, and weight loss Eyes: Negative for injury, pain,redness, and discharge ENT: Negative for injury,pain or swelling Cardiovascular: Negative for chest pain, palpitations, and edema Respiratory: Negative for shortness of breath, cough, and wheezing, Abdomen/GI: Negative for vomiting, diarrhea, and constipation positive for left lower quadrant pain, nausea Back: Negative for injury and pain : Positive for left flank pain, hematuria MS/Extremity: Negative for injury and deformity Skin: Negative for rash, and discoloration Neuro: Negative for headache, weakness, numbness, tingling, and seizure Psych: Negative for suicide ideation, homicidal ideation, and hallucinations Initial Vital Sign VS Vital Signs Date Time Temp Pulse Resp B/P (MAP) Pulse Ox O2 Delivery O2 Flow Rate FiO2 07/16/25 17:12 98.2 90 20 137/95 99 Room Air 07/16/25 18:28 0 21 Physical Exam Dictation Vital Signs reviewed General Appearance: Alert, oriented x 3, no acute distress, well developed, nourished. Head and Face: non-traumatic. Eyes: PERRL, pink conjunctivas, eyelid no trauma, anterior chamber with arcus senilis. Ears: Pinnas intact and no signs of trauma or erythema ear canals clear and no discharge TM no erythema Nose: No discharge, no bleeding. Oropharynx: Mouth normal, tongue pink. pharynx clear,no erythema, tonsils no exudates, no abscesses noted, mucous membrane moist Neck: Supple, non-tender, no thyromegaly, no masses, no JVD, no bruits Breast:Deferred Chest:No tenderness, no crepitus, no paradoxical movement, no retractions Lungs:Clear, well-ventilated, symmetric, no rales, no wheezing, no rhonchi, no stridor, good breath sounds bilaterally Heart: Regular rate, regular rhythm, no murmur, no gallops Vascular: no peripheral edema, Abdomen: Soft, positive bowel sounds, nondistended, no guarding, nontender, no rebound, no masses no hepatomegaly, no splenomegaly, no Biggs's sign, no hernias. Rectal: Deferred Genital: Deferred Neurological: Normal speech, motor function intact, sensory function intact Musculoskeletal: Neck nontender, full range of motion, back nontender, full range of motion, Extremities: nontender, full range of motion Skin: Color pink, dry, no turgor, no rash, no lacerations, no abrasions, no contusions. Lymphatic: Deferred Results (Laboratory/Radiology) Laboratory/Radiology Laboratory Tests Test 07/16/25 17:55 07/16/25 18:05 Urine Color YELLOW (YELLOW) Urine Appearance HAZY (CLEAR) Urine pH 5.5 (5.0-8.0) Urine Specific [place] 1.027 (1.001-1.031) Urine Protein 10 mg/dL (NEGATIVE) H Urine Glucose (UA) NEGATIVE mg/dL (NEGATIVE) Urine Ketones NEGATIVE mg/dL (NEGATIVE) Urine Occult Blood LARGE (NEGATIVE) H Urine Nitrate NEGATIVE (NEGATIVE) Urine Bilirubin NEGATIVE mg/dL (NEGATIVE) Urine Urobilinogen 0.2 mg/dL (0.2-1.0) Urine Leukocyte Esterase NEGATIVE Patrick/uL Urine RBC TNTC /HPF (0-1) H Urine WBC 2-5 /HPF (0-1) H Urine Squamous Epithelial Cells FEW /HPF (0-2) Urine Bacteria RARE /HPF (None Seen) White Blood Count 12.6 K/uL (4.8-10.8) H Red Blood Count 4.25 MIL/uL (4.00-5.50) Hemoglobin 11.8 g/dL (12.0-16.0) L Hematocrit 36.3 % (36-48) Mean Corpuscular Volume 85.4 fL (79-99) Mean Corpuscular Hemoglobin 27.8 pg (27.0-33.0) Mean Corpuscular Hemoglobin Concent 32.5 g/dL (32.0-36.0) Red Cell Distribution Width 14.2 % (11.0-15.5) Platelet Count 315 K/uL (130-400) Mean Platelet Volume 10.4 fL (7.5-10.5) Immature Granulocyte % (Auto) 0.5 % (0-1) Neutrophils (%) (Auto) 53.0 % (40.0-77.0) Lymphocytes (%) (Auto) 36.8 % (21.0-51.0) Monocytes (%) (Auto) 6.8 % (3.0-13.0) Eosinophils (%) (Auto) 2.5 % (0.0-8.0) Basophils (%) (Auto) 0.4 % (0.0-5.0) Neutrophils # (Auto) 6.7 K/uL (1.8-7.7) Lymphocytes # (Auto) 4.6 K/uL (1.0-4.8) Monocytes # (Auto) 0.9 K/uL (0.1-1.0) Eosinophils # (Auto) 0.31 K/uL (0.00-0.70) Basophils # (Auto) 0.05 K/uL (0.00-0.20) Absolute Immature Granulocyte (auto 0.06 K/uL (0-1) Nucleated Red Blood Cells 0.0 % (0.0-0.19) Sodium Level 140 mmol/L (136-145) Potassium Level 3.6 mmol/L (3.5-5.1) Chloride Level 104 mmol/L (101-111) Carbon Dioxide Level 28 mmol/L (21-32) Blood Urea Nitrogen 11 mg/dL (7-18) Creatinine 0.8 mg/dL (0.5-1.0) Glomerular Filtration Rate Calc 90 mL/min (>90) Random Glucose 99 mg/dL (70-105) Total Calcium 8.4 mg/dL (8.5-10.1) L Labs Reviewed?: Yes ED Course ED Course Orders Procedure Category Date Status Time Cbc With Differential LAB 07/16/25 Complete 17:22 Urinalysis Profile LAB 07/16/25 Complete 17:22 0.9%Nacl 1000ml (Ns PHA 07/16/25 Complete 1000ml) 17:30 Ondansetron 4mg Inj PHA 07/16/25 Complete (Zofran 4mg Inj) 17:30 Ct Abdomen/Pelvis W/O CT 07/16/25 Resulted Contrast 17:22 Basic Metabolic Panel LAB 07/16/25 Complete 17:22 Morphine 4mg Syg PHA 07/16/25 Complete (Morphine 4mg Syg) 17:30 Current Medications Medications (Trade) Dose Ordered Sig/[place] Route PRN Reason Start Time Stop Time Status Last Admin Dose Admin Morphine Sulfate (morPHINE 4MG SYG) 4 mg ONCE ONCE IVP 07/16/25 17:30 07/16/25 17:31 DC 07/16/25 18:12 Ondansetron HCl (zoFRAN 4MG INJ) 4 mg ONCE ONCE IVP 07/16/25 17:30 07/16/25 17:31 DC 07/16/25 18:11 Sodium Chloride 1,000 ml @ 0 mls/hr ONCE ONCE IV 07/16/25 17:30 07/16/25 17:31 DC 07/16/25 18:11 Vital Signs Date Time Temp Pulse Resp B/P (MAP) Pulse Ox O2 Delivery O2 Flow Rate FiO2 07/16/25 18:28 98.2 81 16 129/77 98 Room Air* 0 21 07/16/25 17:12 98.2 90 20 137/95 99 Room Air Medical Decision Making MDM The patient is a 50-year-old female with a history of a asthma, depression, hysterectomy, primary immune disorder, kidney stones who presents to the emergency department with left flank pain onset yesterday. Patient reports pain radiates to her left lower quadrant. Reports slight hematuria. Patient reports nausea but denies vomiting, denies diarrhea, denies any fevers. CBC showed mild leukocytosis, no significant change from previous visits, mild normocytic anemia, chemistry showed no electrolyte imbalance, normal renal function, urinalysis was large for occult blood, negative leukocyte esterase, negative nitrites. CT abdomen showed nonobstructive bilateral renal collecting system stones measuring up to 4 mm, no hydronephrosis, no urethral stones, constipation. Patient reports she is already taking Flomax at home and it has an appointment with Dr. Assase. Patient reports pain improved. On physical exam patient is in no acute distress, nontoxic appearance. Denies any lower extremity paresthesia or urinary or fecal incontinence. Patient with a stable vital signs. We will discharge patient to follow up with PCP and Urology. Differential diagnosis: Kidney stone, UTI, acute kidney injury, dehydration Need for hospitalization: Patient does not meet criteria for hospitalization. There are no social concerns with this patient. DX & DISP Disposition: Discharge Departure Impression: Primary Impression: Kidney stones Additional Impressions: Left flank pain, Constipation Condition: Stable Scripts Lactulose (Lactulose) 10 Gram/15 Ml Solution 30 ML PO BID for constipation, #500 ML 0 Refills Prov: WHITTKARLEY CAROBRUCE DEL RIOP 07/16/25 Additional Instructions: Please continue taking your Flomax. Follow up with Urology. Continue oral hydration as tolerated. Follow up with primary doctor if anything worsens please return to ER. FOLLOW-UP WITH PRIMARY CARE PROVIDER IN 1 TO 2 DAYS. TAKE MEDICATIONS DIRECTED HERE IN THE EMERGENCY ROOM. OKAY TO CONTINUE HOME MEDICATIONS UNLESS O THERWISE DISCUSSED DURING YOUR VISIT IN THE EMERGENCY ROOM TODAY. RETURN TO YOUR NEAREST EMERGENCY ROOM IF SYMPTOMS WORSEN OR IF THERE IS NO IMPROVEMENT. CALL 911 IF YOU NEED IMMEDIATE ASSISTANCE. TAKE TYLENOL [id number] NEEDED AND IF NO CONTRAINDICATIONS ARE PRESENT. INCREASE ORAL HYDRATION. A WOUND CULTURE OR URINE CULTURE WAS ORDERED HERE IN THE EMERGENCY ROOM DEPARTMENT PLEASE FOLLOW-UP WITH PRIMARY CARE PROVIDER AND ADVISE THEM TO GET REPEAT PORTS FROM OUR FACILITY. IF YOU HAD ANY ALISON WRAP/SPLINTS THAT WERE APPLIED HERE, PLEASE DO NOT REMOVE THEM UNTIL YOU SEE YOUR PRIMARY CARE OR SPECIALTY. Referrals: ERIC BACON MD (PCP) ISRA DECKER MD Time of Disposition: 18:42 I have reviewed the case, and I agree with, Diagnosis and Plan ELYSE WHITT ROCÍO Jul 16, 2025 18:44
[2025-07-16 19:16] VITALS: BP 110/67; PULSE 77; RESP 18; TEMP 98.6; O2SAT 98
== END 2025-07-16 19:22 | disposition home or self-care (01) ==
LOC: EDH 17:10
DX: N20.0 Calculus of kidney (principal); K59.00 Constipation, unspecified; R10.9 Unspecified abdominal pain; E11.9 Type 2 diabetes mellitus without complications; J45.909 Unspecified asthma, uncomplicated; Z79.51 Long term (current) use of inhaled steroids; Z79.818 Long term (current) use of other agents affecting estrogen receptors and estrogen levels; Z79.899 Other long term (current) drug therapy; Z88.1 Allergy status to other antibiotic agents; Z88.2 Allergy status to sulfonamides; Z88.6 Allergy status to analgesic agent; Z90.49 Acquired absence of other specified parts of digestive tract; Z90.710 Acquired absence of both cervix and uterus
CPT/HCPCS: 99285; 74176; 96374; 96375; 80048; 85025; 81001; 36415; J7030; J2405; J2270